=== PATIENT | female | born 1980 ===

== ENCOUNTER 2018-09-05 14:08 | Emergency (ER) | payer OTHER ==
[2018-09-05 14:22] VITALS: BMI 24.7
[2018-09-05 14:24] VITALS: BP 126/77; TEMP 98.6
[2018-09-05] MEDS ORDERED: Lidocaine 2% Inj (20ml) SC STA (15:05)
[2018-09-05] MEDS ORDERED: Bacitracin 500 Units/gm Oint Foilpak UD TOP ONE (16:42)
[2018-09-05] MEDS ORDERED: TDAP Vaccine 0.5 mL Syr IM ONE (16:42)
[2018-09-05 17:29] VITALS: PULSE 70; RESP 18; O2SAT 98
--- NOTE | 2018-09-05 18:15 | ED PDOC ---
Arrival/HPI - General Chief Complaint: Bite Historian: Patient - History of Present Illness Narrative History of Present Illness (Text): 09/05/18 16:35 A 37 year old female presents to the emergency department complaining of a laceration to the left ear from earlier today. Patient states she was bitten by a dog owned by a person. PD was on scene. Patient denies any headache, dizziness, or any other complaints. No PMD Time/Duration: Other (earlier today) Symptom Onset: Sudden Symptom Course: Unchanged Activities at Onset: Light Context: Home Past Medical History - Provider Review Nursing Documentation Reviewed: Yes - Infectious Disease Hx of Infectious Diseases: None - Psychiatric Hx Substance Use: No - Surgical History Hx Tubal Ligation: Yes Family/Social History - Physician Review Nursing Documentation Reviewed: Yes Family/Social History: No Known Family HX Smoking Status: Light Smoker < 10 Cigarettes Daily Hx Alcohol Use: Yes Frequency of alcohol use: Socially Hx Substance Use: No Allergies/Home Meds Allergies/Adverse Reactions: Allergies No Known Allergies Allergy (Verified 09/05/18 14:22) Review of Systems - Physician Review All systems were reviewed & negative as marked: Yes - Review of Systems Skin: Laceration (laceration to the left ear) Neurological: absent: Headache, Dizziness Physical Exam Vital Signs Reviewed: Yes Vital Signs Temp Pulse Resp BP Pulse Ox 09/05/18 17:09 70 18 98 09/05/18 14:22 98.6 F 77 17 126/77 100 Temperature: Afebrile Blood Pressure: Normal Pulse: Regular Respiratory Rate: Normal Appearance: Positive for: Well-Appearing Mental Status: Positive for: Alert and Oriented X 3 - Systems Exam Head: Present: Atraumatic, Normocephalic Pupils: Present: PERRL Extroacular Muscles: Present: EOMI Conjunctiva: Present: Normal Respiratory/Chest: Present: Clear to Auscultation, Good Air Exchange. No: Respiratory Distress, Accessory Muscle Use Cardiovascular: Present: Regular Rate and Rhythm, Normal S1, S2. No: Murmurs Neurological: Present: GCS=15, CN II-XII Intact, Speech Normal Skin: Present: Warm, Laceration (complex laceration to the anterior of the ear approximately 3 cm and complex laceration to posterior pinna) Psychiatric: Present: Alert, Oriented x 3, Normal Insight, Normal Concentration Medical Decision Making ED Course and Treatment: 09/05/18 16:37 Impression: 37 year old female presenting to the emergency department complaining of a laceration to the left ear. Plan: -- Bacitracin -- Lidocaine -- Boostrix -- Reassess and disposition Prior Visits: Notes and results from previous visits were reviewed. Progress Notes: 09/05/18 16:37 PROCEDURE: LACERATION REPAIR Performed by the emergency provider Location: complex laceration to the anterior of the ear and complex laceration to posterior pinna Length: approximately 3 cm Distal CMS: Normal. No deficits. Neurovascularly intact. Anesthesia: Lidocaine 2% without epi Procedure: The wound was closed with nylon 60. 7 stitches were used in the back and 6 stitches were used in the front. Post-Procedure: Good closure and hemostasis. The patient tolerated the procedure well and there were no complications. CSM remains intact. Post procedure dressing applied. 09/05/18 16:42 Patient is unsure of vaccine status of dog. Patient was given the option of starting the rabies vaccine now but patient declined. Patient will investigate if dog has been vaccinated for rabies. Patient is instructed to return to ER in 2 days to start rabies series if vaccine for the dog cannot be confirmed. Patient understands the plan. - Critical Care Critical Care Minutes: 60 minutes - Medication Orders Current Medication Orders: Discontinued Medications Bacitracin (Bacitracin) 1 ea TOP ONCE ONE Stop: 09/05/18 16:43 Last Admin: 09/05/18 16:56 Dose: 1 ea Lidocaine HCl (Lidocaine 2% 20ml Vial) 5 ml SC ONCE STA Stop: 09/05/18 15:06 Last Admin: 09/05/18 16:56 Dose: 5 ml Subcutaneous Administrations Document 09/05/18 16:56 SS (Rec: 09/05/18 16:57 SS [facility] [id number] Charges for Administration # of Subcutaneous Administrations 1 Tetanus/Reduced Diphtheria/Acell Pertussis (Boostrix Vaccine Inj) 0.5 ml IM .ONCE ONE Stop: 09/05/18 16:43 Last Admin: 09/05/18 16:55 Dose: 0.5 ml Immunization Registry Document 09/05/18 16:55 SS (Rec: 09/05/18 16:56 SS [facility] [id number] [facility]-Date provided 09/05/18 - Scribe Statement The provider has reviewed the documentation as recorded by the Akiko Strauss All medical record entries made by the Scribe were at my direction and personally dictated by me. I have reviewed the chart and agree that the record accurately reflects my personal performance of the history, physical exam, medical decision making, and the department course for this patient. I have also personally directed, reviewed, and agree with the discharge instructions and disposition. Disposition/Present on Arrival - Present on Arrival Any Indicators Present on Arrival: No History of DVT/PE: No History of Uncontrolled Diabetes: No Urinary Catheter: No History of Decub. Ulcer: No History Surgical Site Infection Following: None - Disposition Have Diagnosis and Disposition been Completed?: Yes Diagnosis: Dog bite of ear, Laceration of ear Disposition: HOME/ ROUTINE Disposition Time: 16:30 Condition: IMPROVED Discharge Instructions (ExitCare): Laceration Repair With Stitches (DC) Additional Instructions: DAMIAN LAUREANO, thank you for letting us take care of you today. The emergency medical care you received today was directed at your acute symptoms. If you were prescribed any medication, please fill it and take as directed. It may take several days for your symptoms to resolve. Return to the Emergency Department if your symptoms worsen, do not improve, or if you have any other problems. Please contact your doctor or call one of the physicians/clinics you have been referred to that are listed on the Patient Visit Information form that is included in your discharge packet. Bring any paperwork you were given at discharge with you along with any medications you are taking to your follow up visit. Our treatment cannot replace ongoing medical care by a primary care provider outside of the emergency department. Thank you for allowing the [facility] team to be part of your care today. CONFIRM IN THE NEXT 2 DAYS THAT THE DOG HAS BEEN VACCINATED FOR RABIES. IF NOT, YOU MUST COME BACK IN FOR RABIES VACCINE. Follow up with your doctor or the ENT doctor next week for a wound check and suture removal. Prescriptions: Clindamycin [Cleocin] 300 mg PO Q6 #28 cap Ibuprofen [Motrin] 600 mg PO Q6 PRN #20 tab PRN Reason: Pain, Moderate (4-7) Referrals: William Navarrete DO [Staff Provider] - Follow up with primary Forms: [employer] [place] ([place])
== END 2018-09-05 17:27 | disposition home or self-care (01) ==
LOC: ED 14:08
DX: S01.312A Laceration without foreign body of left ear, initial encounter (principal); W54.0XXA Bitten by dog, initial encounter; Z23 Encounter for immunization; F17.210 Nicotine dependence, cigarettes, uncomplicated

== ENCOUNTER 2018-09-07 10:57 | Emergency (ER) | payer OTHER ==
[2018-09-07 10:57] VITALS: BMI 24.7
[2018-09-07 11:10] VITALS: BP 116/80; PULSE 71; RESP 18; TEMP 98.6; O2SAT 99
--- NOTE | 2018-09-07 11:33 | ED PDOC ---
Arrival/HPI - General Chief Complaint: Rabies Vaccine Series Time Seen by Provider: 09/07/18 11:18 Historian: Patient - History of Present Illness Narrative History of Present Illness (Text): 09/07/18 11:19 37 y/o female, no significant pmh, nkda, c/o wound check of the left ear s/p dog bite sutured wound 2 days ago. Pt. stated that her last tetanus under 7 years ago, dog bite on the left year 2 days ago with sutures on clindamycin with no nkda, [place] and [facility] already contacted and under investigation. Pt. stated that that the dog has rabies vaccination up to date as per the dental patient coordinator as per patient. Pt. stated that she feels well, no pain or change in hearing. Pt. stated that she is gonna call the Department of Health tomorrow. Pt. has no ear drainage, no other medical or psychological complaints. Past Medical History - Provider Review Nursing Documentation Reviewed: Yes - Infectious Disease Hx of Infectious Diseases: None - Psychiatric Hx Substance Use: No - Surgical History Hx Tubal Ligation: Yes Family/Social History - Physician Review Nursing Documentation Reviewed: Yes Family/Social History: Unknown Family HX Smoking Status: Light Smoker < 10 Cigarettes Daily Hx Alcohol Use: Yes Hx Substance Use: No Allergies/Home Meds Allergies/Adverse Reactions: Allergies No Known Allergies Allergy (Verified 09/07/18 11:09) Review of Systems - Review of Systems Constitutional: absent: Fatigue, Weight Change, Fevers Eyes: absent: Vision Changes ENT: absent: Hearing Changes Respiratory: absent: SOB, Cough Cardiovascular: absent: Chest Pain Gastrointestinal: absent: Abdominal Pain, Nausea, Vomiting Skin: Other (lt. ear sutures). absent: Rash, Pruritis, Skin Lesions Neurological: absent: Headache, Dizziness Psychiatric: absent: Anxiety, Depression Physical Exam Vital Signs Reviewed: Yes Vital Signs Temp Pulse Resp BP Pulse Ox 09/07/18 11:05 98.6 F 71 18 116/80 99 Temperature: Afebrile Blood Pressure: Normal Pulse: Regular Respiratory Rate: Normal Appearance: Positive for: Well-Appearing, Non-Toxic, Comfortable Pain Distress: None Mental Status: Positive for: Alert and Oriented X 3 - Systems Exam Head: Present: Atraumatic, Normocephalic Pupils: Present: PERRL Extroacular Muscles: Present: EOMI Conjunctiva: Present: Normal Mouth: Present: Moist Mucous Membranes Nose (External): Present: Atraumatic, Other (lt. ear noted to have sutures attached with no cellulitis/ulcers/streaking. ). No: Abrasion, Contusion, Laceration Nose (Internal): Present: Normal Inspection, No Active Bleeding. No: Rhin orrhea, Septal Hematoma, Epistaxis Neck: Present: Normal Range of Motion Respiratory/Chest: Present: Clear to Auscultation, Good Air Exchange. No: Re spiratory Distress, Accessory Muscle Use Cardiovascular: Present: Regular Rate and Rhythm, Normal S1, S2. No: Murmurs Abdomen: No: Tenderness, Distention, Peritoneal Signs Back: Present: Normal Inspection Upper Extremity: Present: Normal Inspection. No: Cyanosis, Edema Lower Extremity: Present: Normal Inspection. No: Edema Neurological: Present: GCS=15, CN II-XII Intact, Speech Normal Skin: Present: Warm, Dry, Normal Color. No: Rashes Psychiatric: Present: Alert, Oriented x 3, Normal Insight, Normal Concentration Medical Decision Making ED Course and Treatment: 09/07/18 11:52 -lt. ear wound is dry and clean, will give augmentin as standard of care. -I offered prophylatic and rabies vaccination series for her since there is no evidence physical proof of dog vaccination at this time but the patient declined at this time until she call Dept. of health. I offered rabies immunoglobulin and vaccination but the patient declined, advised these shots to protect and prevent rabies, risks and benefits explained. I spoke to Dr. Delgado about this case, awared of this patient's decision as he saw this patient as well 2 days ago. -Discharge home with augmentin and stop clindamycin, follow up with your own pmd and health dept/infectious disease tomorrow, return to the ER if you decide to receive rabies immunoglobulin and vaccination or any new or worsening signs or symptoms. - PA / HEALTH ANALYTICS CONSULTANT / Resident Statement MD/DO has reviewed & agrees with the documentation as recorded. Disposition/Present on Arrival - Present on Arrival Any Indicators Present on Arrival: No History of DVT/PE: No History of Uncontrolled Diabetes: No Urinary Catheter: No History of Decub. Ulcer: No History Surgical Site Infection Following: None - Disposition Have Diagnosis and Disposition been Completed?: Yes Diagnosis: Visit for wound check Disposition: HOME/ ROUTINE Disposition Time: 11:55 Patient Plan: Discharge Patient Problems: Current Active Problems Problem Status Onset Visit for wound check Acute Condition: GOOD Additional Instructions: -Discharge home with augmentin and stop clindamycin, follow up with your own pmd and health dept/infectious disease tomorrow, return to the ER if you decide to receive rabies immunoglobulin and vaccination or any new or worsening signs or symptoms. Prescriptions: Amoxicillin/Clavulanate [Augmentin 875 MG-125 MG] 1 tab PO BID #20 tab Referrals: Rafael Larry MD [Staff Provider] - [place] up with primary [facility] [place] [facility] [place] - Follow up with primary Forms: [employer] (German), WORK NOTE
== END 2018-09-07 12:30 | disposition home or self-care (01) ==
LOC: ED 10:57
DX: Z48.00 Encounter for change or removal of nonsurgical wound dressing (principal); W54.0XXD Bitten by dog, subsequent encounter; F17.210 Nicotine dependence, cigarettes, uncomplicated

== ENCOUNTER 2018-09-26 09:26 | Outpatient (CLI) | payer OTHER | END 2018-09-26 09:27 | disposition home or self-care (01) | LOC: RAD 09:26 ==

== ENCOUNTER 2018-09-26 10:06 | Emergency (ER) | payer OTHER ==
[2018-09-26 10:18] VITALS: BMI 25.6
[2018-09-26 10:32] VITALS: BP 106/63; PULSE 65; RESP 18; TEMP 98.7; O2SAT 98
--- NOTE | 2018-09-26 10:37 | ED PDOC ---
Arrival/HPI - General Chief Complaint: Suture/Staple Removal Time Seen by Provider: 09/26/18 10:08 Historian: Patient - History of Present Illness Narrative History of Present Illness (Text): 09/26/18 10:34 37yo female with no past medical history who present with for suture removal from left pinna. Patient notes that sutures was placed here on 08/07/18. She denies fever, discharge, redness, any other complaint. Past Medical History - Provider Review Nursing Documentation Reviewed: Yes - Infectious Disease Hx of Infectious Diseases: None - Reproductive Currently : No - Psychiatric Hx Substance Use: No - Surgical History Hx Tubal Ligation: Yes Family/Social History - Physician Review Nursing Documentation Reviewed: Yes Family/Social History: Unknown Family HX Smoking Status: Light Smoker < 10 Cigarettes Daily Hx Alcohol Use: Yes Hx Substance Use: No Allergies/Home Meds Allergies/Adverse Reactions: Allergies No Known Allergies Allergy (Verified 09/07/18 11:09) Home Medications: Home Meds Medication Instructions Recorded Confirmed RX: No Known Home Med 09/26/18 09/26/18 Review of Systems - Physician Review All systems were reviewed & negative as marked: Yes - Review of Systems Constitutional: Normal Eyes: Normal ENT: Normal Respiratory: Normal Cardiovascular: Normal Gastrointestinal: Normal Genitourinary Female: Normal Musculoskeletal: Normal Skin: Other (Suture removal) Neurological: Normal Endocrine: Normal Hemo/Lymphatic: Normal Psychiatric: Normal Physical Exam Vital Signs Reviewed: Yes Vital Signs Temp Pulse Resp BP Pulse Ox 09/26/18 10:06 98.7 F 65 18 106/63 98 Temperature: Afebrile Blood Pressure: Normal Pulse: Regular Respiratory Rate: Normal Appearance: Positive for: Well-Appearing, Non-Toxic, Comfortable Pain Distress: None Mental Status: Positive for: Alert and Oriented X 3 - Systems Exam Head: Present: Atraumatic, Normocephalic Pupils: Present: PERRL Extroacular Muscles: Present: EOMI Conjunctiva: Present: Normal Mouth: Present: Moist Mucous Membranes Neck: Present: Normal Range of Motion Respiratory/Chest: Present: Clear to Auscultation, Good Air Exchange. No: Respiratory Distress, Accessory Muscle Use Cardiovascular: Present: Regular Rate and Rhythm, Normal S1, S2. No: Murmurs Abdomen: No: Tenderness, Distention, Peritoneal Signs Back: Present: Normal Inspection Upper Extremity: Present: Normal Inspection. No: Cyanosis, Edema Lower Extremity: Present: Normal Inspection. No: Edema Neurological: Present: GCS=15, CN II-XII Intact, Speech Normal Skin: Present: Warm, Dry, Normal Color, Other (13sutures noted in place on left ear pinna. No erythema. No discharge. No sign of infection). No: Rashes Psychiatric: Present: Alert, Oriented x 3, Normal Insight, Normal Concentration Medical Decision Making ED Course and Treatment: 09/26/18 19:47 PT presented to Emergency department for stated history. 13sutures was removed from the left pinna. The edges appeared approximated. She was advised to keep area clean and dry. Disposition/Present on Arrival - Present on Arrival Any Indicators Present on Arrival: No History of DVT/PE: No History of Uncontrolled Diabetes: No Urinary Catheter: No History of Decub. Ulcer: No History Surgical Site Infection Following: None - Disposition Have Diagnosis and Disposition been Completed?: Yes Diagnosis: Visit for suture removal Disposition: HOME/ ROUTINE Disposition Time: 10:35 Patient Plan: Discharge Condition: STABLE Discharge Instructions (ExitCare): Stitches Removal Additional Instructions: Keep area clean and dry Follow up with your doctor Return to Emergency department for any new symptoms Referrals: Lisa Webster MD [Medical Doctor] - Follow up with primary Forms: [email or web address] (I[place]ic)
== END 2018-09-26 10:49 | disposition home or self-care (01) ==
LOC: ED 10:06
DX: Z48.02 Encounter for removal of sutures (principal); F17.210 Nicotine dependence, cigarettes, uncomplicated